=== PATIENT | female | born 1955 | race Caucasian/White ===

== ENCOUNTER 2016-07-29 08:24 | Outpatient (RCR) | payer BC ==
[~2016-07-29 08:24] MED LIST: DCS100C PO; DEXA4TAB PO; FOLI1TAB24 PO; GABA-488 PO; HYDR-34 PO; Ibuprofen PO; MDR10T PO; METH2.5T PO; NAPR220C11 PO; NAPR220T76 PO; OMEP20CA12 PO; ONDA8TAB12 PO
--- OUTSIDE RECORDS SUMMARY | 2016-07-29 08:26 | XMS REPORT | Continuity of Care Document ---
Author Author [facility] Organization [facility] Address Unknown Phone Unavailable Care Team Providers Care Food Cart Attendant Name Role Phone Fan Ramon PCP [phone] Source Comments Some departments are not documenting in the electronic medical record. If you do not see the information that you expected, contact Release of Information in the Health Information Management department at [phone] for further assistance in locating additional records.[facility] Active Allergies and Adverse Reactions Allergen Noted Date Severity Reactions Comments Erythromycin 06/29/2014 STOMACH UPSET Current Medications Prescription Sig. Disp. Refills Start End Date Status Date methotrexate 2.5 mg Take 2.5 mg by mouth Active tablet every 7 days. 7 tablets every 7 days folic acid (FOLVITE) 1 mg Take 1 mg by mouth daily. Active tablet ergocalciferol (VITAMIN Take 50,000 Units by Active D-2) 50,000 unit capsule mouth every 7 days. NAPROXEN SODIUM (ALEVE Take by mouth. Pt. Has Active PO) been taking 2 in the morning and 2 at nite HYDROmorphone (DILAUDID) Take 2 mg by mouth every Active 2 mg tablet 3 hours as needed Active Problems Problem Noted Date Epigastric pain 06/27/2015 Pelvic pain in female 06/27/2015 3Rd nerve palsy, partial 02/05/2015 Cataracts, bilateral 02/05/2015 Endometrial cancer 08/09/2014 Resolved Problems Problem Noted Date Resolved Date Open wound anterior abdominal wall 10/10/2014 02/06/2016 Preop examination 07/31/2014 02/06/2016 Overview: Exploratory laparotomy secondary to uterine cancer. L ast Assessment & Plan: There are no contraindications to surgery. I think she probably has some degree of sleep apnea given her overnight ox. Her CO2 levels are normal on her VBG which is reassuring in terms of obesity hypoventilation, but she will need close monitoring postoperatively. No additional medications/inhalers. Encouraged her to stay active up to surgery. We discussed quiting smoking entirely, which she has done multiple times in the past. PFT's are normal. No COPD. Her CXR was read as possible fibrosis, but with a normal DLCO and no major respiratory complaints this should not affect her ability to proceed with cancer staging. Social History Tobacco Use Types Packs/Day Years Used Date Current Every Day Smoker Cigarettes 0.25 28 Smokeless Tobacco: Never Used Tobacco Cessation: Ready to Quit: No Comments: Trying to quit since hysterectomy - Down to about 5 cigarettes a day. Alcohol Use Drinks/Week oz/Week Comments No Last Filed Vital Signs Vital Sign Reading Time Taken Blood Pressure 141/59 03/17/2016 11:08 AM CDT Pulse 92 03/17/2016 11:08 AM CDT Temperature 37.1 C (98.7 F) 03/17/2016 11:08 AM CDT Respiratory Rate 18 02/15/2016 12:20 PM CDT Height 1.753 m (5' 9.02") 03/17/2016 11:08 AM CDT Weight 116.847 kg (257 lb 9.6 03/17/2016 11:08 AM CDT oz) Body Mass Index 38.02 03/17/2016 11:08 AM CDT Oxygen Saturation 98% 03/17/2016 11:08 AM CDT Plan of Care Health Maintenance Due Date Last Done Comments Hepatitis C Screening 1955 Physical (Comprehensive) 1964 Exam Pertussis Vaccine 1968 Tetanus Vaccine 1974 Influenza Vaccine 06/05/2016 Breast Cancer Screening 06/19/2017 06/19/2015 Cervical Cancer Screening 06/19/2018 06/19/2015 Colorectal Cancer 08/08/2024 08/08/2014 Screening Results from Last 3 Months Not on file
== END 2016-10-27 | disposition home or self-care (01) ==
LOC: ONC 08:24
PROVIDERS: ATTEND Internal Medicine Hematology & Oncology
DX: C54.1 Malignant neoplasm of endometrium (principal); C77.5 Secondary and unspecified malignant neoplasm of intrapelvic lymph nodes
CPT/HCPCS: 99213